=== PATIENT | female | born 1980 | race Caucasian/White ===

== ENCOUNTER → 2022-02-04 | Outpatient (CLI) | payer BC ==
[~2022-02-04] MED LIST: CALTRATE-600 W600 MG PO; FOLIC ACID PO; PRENATAL VITAMI1 TA5 PO; ZANTAC 150150 MG PO; [UNRECOGNIZED DRUG - CODE] PO
== END ==
LOC: COL.RAD 15:15
DX: R22.42 Localized swelling, mass and lump, left lower limb (principal)